=== PATIENT | male | born 1960 | race Caucasian/White ===

== ENCOUNTER 2021-11-02 14:35 | Outpatient (REF) | payer BC, SELFPAY ==
[2021-11-02 14:44] LABS: MANUAL DIFF FLAG NO
[2021-11-02 14:47] LABS: Basophils Percent Auto 0.9 % (0-2); Eosinophils Absolute Auto 0.1 X10*3/uL (0.0-0.4); Hematocrit 47.6 % (42.0-52.0); Hemoglobin 16.4 g/dl (14.0-18.0); Imm Gran Abs Auto 0.02 X10*3/uL (0.00-0.03); Imm Gran Pct Auto 0.4 % (0.0-0.4); Lymphocytes Absolute Auto 1.4 X10*3/uL (1.2-4.9); Lymphocytes Percent Auto 31.3 % (20-40); Mean Corpuscular HGB Conc 34.5 g/dl (31.0-36.0); Mean Corpuscular Hemoglobin 30.9 pg (27.0-33.0); Mean Corpuscular Volume 89.6 fL (80.0-98.0); Mean Platelet Volume 11.7 fL (9.4-12.4); Monocytes Absolute Auto 0.6 X10*3/uL (0.1-1.2); Monocytes Percent Auto 12.6 % (2-11); Neutrophils Absolute Auto 2.4 x10*3/uL (2.0-8.3); Neutrophils Percent Auto 52.8 % (45-73); Platelet Count 190 X10*3/uL (160-400); Red Blood Count 5.31 X10*6/uL (4.60-5.80); Red Cell Distribution Width 12.5 % (11.0-16.0); White Blood Count 4.5 X10*3/uL (4.8-10.8)
[2021-11-02 14:50] LABS: Appearance Urine CLEAR; Color Urine YELLOW; Glucose Urine UA NEG (NEG); Leukocyte Esterase Urine NEG (NEG); Nitrite Urine NEG (NEG); Specific Gravity - Urine >= 1.030 (1.005-1.025); Urine Blood NEG (NEG); Urine Ketones NEG (NEG); Urine Protein NEG (NEG-TRACE)
[2021-11-02 14:59] LABS: Alanine Aminotransferase 21 U/L (0-40); Albumin Level 4.2 g/dL (3.5-5.0); Alkaline Phosphatase 59 U/L (39-117); Anion Gap 11 (12-20); Aspartate Amino Transferase 22 U/L (5-37); Bilirubin Total 0.5 mg/dL (0.0-1.0); Blood Urea Nitrogen 18 mg/dL (9-16); Calcium 9.2 mg/dL (8.4-10.2); Carbon Dioxide 26 mmol/L (22-29); Chloride 105 mmol/L (96-108); Cholesterol 188 mg/dL; Estimated Glomerular Filt Rate 59; Glucose Fasting 125 mg/dL (60-99); HDL Cholesterol 36 mg/dL; LDL Cholesterol Calculated 106 mg/dl; Potassium 4.9 mmol/L (3.3-5.1); Sodium 137 mmol/L (135-145); Total Protein 6.9 g/dL (6.5-8.0); Triglycerides 234 mg/dL; Uric Acid 9.9 mg/dL (3.4-7.0)
[2021-11-02 15:02] LABS: Squamous Epithelial Cell Urine 1+ /LPF
[2021-11-02 15:03] LABS: RBC Urine 0-2 /HPF (0); WBC Urine 0 /HPF (0-4)
[2021-11-02 15:18] LABS: PSA,Total (Free>4and<10) 0.44 ng/mL (0.00-4.00)
== END 2021-11-02 14:36 | disposition home or self-care (01) ==
LOC: HO.LNP 14:35
PROVIDERS: Visit Provider Internal Medicine
DX: Z00.00 Encounter for general adult medical examination without abnormal findings (principal); Z12.5 Encounter for screening for malignant neoplasm of prostate; I10 Essential (primary) hypertension; F41.0 Panic disorder [episodic paroxysmal anxiety]; Z87.39 Personal history of other diseases of the musculoskeletal system and connective tissue
CPT/HCPCS: 80053; 80061; 81001; 84153; 84550; 85025

== ENCOUNTER 2022-02-06 07:23 | Day surgery (SDC) | payer BC, SELFPAY ==
[2022-01-31 14:48] VITALS: BMI 33.6
--- NOTE | 2022-02-05 12:03 | P.CONAN_ITS ---
Documented by User: Tabatha Gunn NP 02/05/22 12:04 HPI - Anesthesia Eval Consult details Narrative: 61yo M for Colonoscopy [facility] Past Medical History Medical History Anxiety Gout HTN (hypertension) Surgical History Surgical History H/O colonoscopy Hx of bilateral inguinal hernia repair Social History Social History Patient Tobacco Use Status: Former Tobacco user Quit Date: 1982 Tobacco use type: Cigarette Cigarettes Per Day: 15 Years Smoked: 8 Smoked in Last 30 Days: No Use of substances other than those prescribed or required for medical reasons: Yes Are you DNR?: No Advance Directives: No Advance Directives Information Provided: Yes Meds Allergies Allergy/AdvReac Type Severity Reaction Status Date / Time No Known Allergies Allergy Verified 02/06/22 07:41 Home Medications Medication Instructions Recorded Confirmed Last Taken Type alprazolam 0.25 mg tablet 1 tab PO DAILY PRN Anxiety 01/31/22 01/31/22 Unknown History carvedilol 25 mg tablet 1 tab PO BID 01/31/22 02/06/22 02/05/22 History colchicine 0.6 mg tablet tab PO 01/31/22 Unknown History indomethacin 50 mg capsule 1 cap PO TID PRN Acid Reflux 01/31/22 01/31/22 Unknown History quinapril 20 mg tablet 1 tab PO DAILY 01/31/22 01/31/22 Unknown History Exam Exam Date and Time: February 05, 2022 1203 Height,Weight and Vital Signs: Height 5 ft 7 in Weight 97.522 kg Pertinent Lab Results Pertinent Lab Results: Laboratory Tests 11/02/21 11/02/21 10:00 10:00 WBC 4.5 L Hgb 16.4 Hct 47.6 Plt Count 190 Sodium 137 Potassium 4.9 Chloride 105 Carbon Dioxide 26 BUN 18 H Creatinine 1.25 Assessment and Plan Assessment Anesthesia Assessment: Chart Reviewed Documented by User: Richa Venegas MD 02/06/22 09:05 PMFSH Past Medical History Medical History Anxiety Gout HTN (hypertension) Surgical History Surgical History H/O colonoscopy Hx of bilateral inguinal hernia repair History of Problems with Anesthesia: No Social History Social History Patient Tobacco Use Status: Former Tobacco user Quit Date: 1982 Tobacco use type: Cigarette Cigarettes Per Day: 15 Years Smoked: 8 Smoked in Last 30 Days: No Use of substances other than those prescribed or required for medical reasons: Yes Are you DNR?: No Advance Directives: No Advance Directives Information Provided: Yes Meds Allergies Allergy/AdvReac Type Severity Reaction Status Date / Time No Known Allergies Allergy Verified 02/06/22 07:41 Home Medications Medication Instructions Recorded Confirmed Last Taken Type alprazolam 0.25 mg tablet 1 tab PO DAILY PRN Anxiety 01/31/22 01/31/22 Unknown History carvedilol 25 mg tablet 1 tab PO BID 01/31/22 02/06/22 02/05/22 History colchicine 0.6 mg tablet tab PO 01/31/22 Unknown History indomethacin 50 mg capsule 1 cap PO TID PRN Acid Reflux 01/31/22 01/31/22 Unknown History quinapril 20 mg tablet 1 tab PO DAILY 01/31/22 01/31/22 Unknown History Exam Airway Mallampati Class: III TM Dist: >3cm Neck ROM: Full Loose/Missing/Broken Teeth: No Heart: RRR Lungs: CTA Assessment and Plan Assessment Anesthesia Assessment: Anesthesia Plan Discussed Final Anesthetic Review History of Problems with Anesthesia: No NPO: Yes ASA Class: II Final Preanesthetic Review: Meds/Allgs Chart Reviewed, Consent Obtained/Reviewed and Anes Risks/Benef Reviewed Patient Risk: Low Procedure Risk: Low Anesthetic Plan Anesthetic Plan: MAC: Disposition: Standard PACU
[2022-02-06 07:42] VITALS: BP 181/98; PULSE 71; RESP 16; TEMP 36.6; O2SAT 93; BMI 29.7
[2022-02-06] MEDS: Lactated Ringers 1,000 ML 100 ML IVCONT (08:14)
[2022-02-06 09:37] VITALS: BP 119/55; PULSE 80; RESP 20; TEMP 36.1; O2SAT 94
--- NOTE | 2022-02-06 09:49 | PM.OP ---
Brief Operative Note Date of Service: 02/06/22 Pre-op diagnosis: Screening Post-op diagnosis: other (Diverticulosis) Procedure: Colonoscopy to the cecum and TI Surgeon: Jordy Turner Anesthesia: MAC Was an Sap Basis Consultant used for this Procedure?: No Estimated blood loss (mL): 0 Pathology: none sent Condition: stable Disposition: PACU
[2022-02-06 09:52] VITALS: BP 144/85; PULSE 74; RESP 18; TEMP 36.3; O2SAT 93
--- NOTE | 2022-02-06 10:08 | OP_ITS ---
SURGEON: Jordy Turner MD INDICATIONS: The patient presents for evaluation of colorectal cancer screening, personal history of colon polyps, and family history of colon cancer. Full consent has been obtained from him for this, including risks of bleeding and perforation. PREOPERATIVE DIAGNOSIS: Colorectal cancer screening, personal history of colon polyps, family history of colon cancer. POSTOPERATIVE DIAGNOSIS: Colorectal cancer screening, personal history of colon polyps, family history of colon cancer, diverticulosis and internal hemorrhoids. PROCEDURE PERFORMED: Colonoscopy to cecum and terminal ileum. ESTIMATED BLOOD LOSS: COMPLICATIONS: ANESTHESIA: Monitored anesthesia care. ASSISTANTS: SPECIMENS: DESCRIPTION OF PROCEDURE: The patient was placed in the left lateral decubitus position. The digital rectal exam revealed no abnormalities. The Olympus video pediatric colonoscope was entered into the rectum and advanced to the cecum with the assistance of abdominal wall pressure. Once in the cecum, I did identify normal-appearing cecal pouch with appendiceal orifice and a normal-appearing ileocecal valve. The terminal ileum was cannulated and appeared normal. The scope was withdrawn back in the colon. The entire cecum and ileocecal valve appeared normal. The scope was then slowly withdrawn assessing all mucosal surfaces carefully. Preparation was excellent. I did not visualize any sign of polyps, colitis, or angiodysplasia. There was a fairly extensive amount of diverticulosis in the sigmoid colon. In the rectum, scope was retroflexed visualizing internal hemorrhoids, but no other pathology. The rectal mucosa appeared normal. Scope was straightened and withdrawn from the patient. He tolerated the procedure well and was returned to the recovery area in stable condition. IMPRESSION: 1. Diverticulosis. 2. Internal hemorrhoids. PLAN: I would recommend a repeat colonoscopy in 5 years for further screening given the family history of colon cancer and his prior history of colon polyps. He will otherwise see me on a p.r.n. basis. MD KAITLIN Gross/MARIZA / [phone]
== END 2022-02-06 10:21 | disposition home or self-care (01) ==
PROVIDERS: PCP Internal Medicine; Visit Provider Internal Medicine
PROC: 0DJD8ZZ Inspection of Lower Intestinal Tract, Via Natural or Artificial Opening Endoscopic (ICD-10-PCS; CPT 45378; principal; 2022-02-06 08:30)
DX: Z12.11 Encounter for screening for malignant neoplasm of colon (principal); Z86.010 Personal history of colon polyps; Z80.0 Family history of malignant neoplasm of digestive organs; K57.30 Diverticulosis of large intestine without perforation or abscess without bleeding; K64.8 Other hemorrhoids; I10 Essential (primary) hypertension; M10.9 Gout, unspecified; F41.1 Generalized anxiety disorder; Z79.899 Other long term (current) drug therapy; Z87.891 Personal history of nicotine dependence
CPT/HCPCS: 45378

== ENCOUNTER → 2022-06-18 14:03 | Outpatient (REF) | payer BC, SELFPAY ==
--- NOTE | 2022-06-18 14:09 | HM_ITS ---
Cardiac event monitor Indication: Palpitations Technique: Patient was hooked up for cardiac event monitor on 06/18/2022 for total period of 30 days. I was requested to read this study today Findings: Patient's compliance rate was extremely poor with where time of only 2.67% and with no data during that time as well. Conclusion: Poor compliance with cardiac event monitor with no identifiable data MTDD
== END ==
LOC: HO.CARD 14:03
PROVIDERS: PCP Internal Medicine; Visit Provider Internal Medicine
DX: R00.2 Palpitations (principal)
CPT/HCPCS: 93270

== ENCOUNTER → 2022-06-18 14:09 | Outpatient (BNV) | payer BC, SELFPAY | PROVIDERS: PCP Internal Medicine; Visit Provider Internal Medicine Cardiovascular Disease | DX: R00.2 Palpitations (principal) | CPT/HCPCS: 93272 ==

== ENCOUNTER 2022-08-08 10:56 | Outpatient (REF) | payer BC, SELFPAY ==
[2022-08-08 11:04] LABS: MANUAL DIFF FLAG NO
[2022-08-08 13:14] LABS: Basophils Percent Auto 0.6 % (0-2); Eosinophils Absolute Auto 0.1 X10*3/uL (0.0-0.4); Eosinophils Percent Auto 1.8 % (0-4); Hematocrit 50.5 % (42.0-52.0); Hemoglobin 17.2 g/dl (14.0-18.0); Imm Gran Abs Auto 0.04 X10*3/uL (0.00-0.03); Imm Gran Pct Auto 0.6 % (0.0-0.4); Lymphocytes Absolute Auto 2.7 X10*3/uL (1.2-4.9); Lymphocytes Percent Auto 41.3 % (20-40); Mean Corpuscular HGB Conc 34.1 g/dl (31.0-36.0); Mean Corpuscular Hemoglobin 31.3 pg (27.0-33.0); Mean Corpuscular Volume 91.8 fL (80.0-98.0); Mean Platelet Volume 11.3 fL (9.4-12.4); Monocytes Absolute Auto 0.7 X10*3/uL (0.1-1.2); Monocytes Percent Auto 10.6 % (2-11); Neutrophils Percent Auto 45.1 % (45-73); Platelet Count 253 X10*3/uL (160-400); Red Cell Distribution Width 12.9 % (11.0-16.0); White Blood Count 6.6 X10*3/uL (4.8-10.8)
[2022-08-08 13:17] LABS: Appearance Urine Clear; Color Urine Yellow; Glucose Urine UA Negative (Negative); Leukocyte Esterase Urine Negative (Negative); Nitrite Urine Negative (Negative); PH 5.5 (5.0-9.0); Specific Gravity - Urine 1.015 (1.005-1.025); Urine Blood Negative (Negative); Urine Ketones Negative (Negative); Urine Protein Negative (Neg-Trace)
[2022-08-08 13:27] LABS: Bacteria Urine None Seen (None Seen); Hyaline Casts Urine 0-2 /LPF (0-2); RBC Urine 0-2 /HPF (0-2); Squamous Epithelial Cell Urine 0-2 /HPF (0-2); WBC Urine 0-5 /HPF (0-5)
[2022-08-08 13:48] LABS: Alanine Aminotransferase 29 U/L (0-40); Albumin Level 4.3 g/dL (3.5-5.0); Alkaline Phosphatase 61 U/L (39-117); Anion Gap 15 (12-20); Aspartate Amino Transferase 25 U/L (5-37); Blood Urea Nitrogen 24 mg/dL (9-16); Calcium 9.3 mg/dL (8.4-10.2); Carbon Dioxide 24 mmol/L (22-29); Chloride 105 mmol/L (96-108); Cholesterol 197 mg/dL; Estimated Glomerular Filt Rate > 60; Glucose Fasting 98 mg/dL (60-99); HDL Cholesterol 33 mg/dL; LDL Cholesterol Calculated 114 mg/dl; Potassium 4.9 mmol/L (3.3-5.1); Sodium 139 mmol/L (135-145); Triglycerides 253 mg/dL
[2022-08-08 14:04] LABS: PSA,Total (Free>4and<10) 0.47 ng/mL (0.00-4.00)
== END 2022-08-08 10:57 | disposition home or self-care (01) ==
LOC: HO.LNP 10:56
PROVIDERS: Visit Provider Internal Medicine
DX: Z00.00 Encounter for general adult medical examination without abnormal findings (principal); I10 Essential (primary) hypertension; Z12.5 Encounter for screening for malignant neoplasm of prostate
CPT/HCPCS: 80053; 80061; 81001; 84153; 85025

== ENCOUNTER 2022-11-18 10:43 | Outpatient (REF) | payer BC, SELFPAY ==
--- NOTE | ~2022-11-18 | XR_ITS ---
EXAMINATION: XR ANKLE, LEFT CLINICAL INFORMATION: Acute left ankle pain COMPARISON: None available. TECHNIQUE: AP, lateral, and mortise views of the left ankle. FINDINGS: Radiopaque marker placed by the technologist to indicate the area of concern as indicated by the patient adjacent to the lateral malleolus There is diffuse soft tissue swelling, more notable medially, with an ankle joint effusion. No displaced fracture identified. Alignment preserved. Oval 8 mm ossicle projects over the anterior lateral aspect of the calcaneus There is an area of demineralization with possible corticated margins measuring 1.3 x 1.2 cm along the medial aspect of the talus on the AP view which appears less well-defined on the oblique view. XR/XR ankle LT 2V IMPRESSION: Possible 1.3 cm cystic lucency/area of demineralization detailed above. CT scan or MRI recommended for further evaluation. This study was presented today 11/25/2022 at 9:30 AM for interpretation. PSA staff will provide results to referring provider at this time.
== END 2022-11-18 10:44 | disposition home or self-care (01) ==
LOC: HO.XRAY 10:43
PROVIDERS: PCP Internal Medicine; Visit Provider Internal Medicine
DX: M25.572 Pain in left ankle and joints of left foot (principal)
CPT/HCPCS: 73600

== ENCOUNTER 2023-08-12 11:18 | Outpatient (REF) | payer BC, SELFPAY ==
[2023-08-12 11:21] LABS: MANUAL DIFF FLAG NO
[2023-08-12 12:00] LABS: Appearance Urine Clear; Color Urine Yellow; Glucose Urine UA Negative (Negative); Leukocyte Esterase Urine Trace (Negative); Nitrite Urine Negative (Negative); PH 5.5 (5.0-9.0); Specific Gravity - Urine 1.025 (1.005-1.025); UMIC TRIGGER UACC YES; Urine Blood Negative (Negative); Urine Ketones Negative (Negative); Urine Protein Negative (Neg-Trace)
[2023-08-12 12:11] LABS: Basophils Percent Auto 0.4 % (0-2); Eosinophils Absolute Auto 0.1 X10*3/uL (0.0-0.4); Eosinophils Percent Auto 1.3 % (0-4); Hemoglobin 16.3 g/dl (14.0-18.0); Imm Gran Abs Auto 0.04 X10*3/uL (0.00-0.03); Imm Gran Pct Auto 0.5 % (0.0-0.4); Lymphocytes Absolute Auto 2.3 X10*3/uL (1.2-4.9); Lymphocytes Percent Auto 30.2 % (20-40); Mean Corpuscular HGB Conc 33.3 g/dl (31.0-36.0); Mean Corpuscular Hemoglobin 30.4 pg (27.0-33.0); Mean Corpuscular Volume 91.4 fL (80.0-98.0); Mean Platelet Volume 11.3 fL (9.4-12.4); Monocytes Absolute Auto 0.7 X10*3/uL (0.1-1.2); Monocytes Percent Auto 9.7 % (2-11); Neutrophils Absolute Auto 4.3 x10*3/uL (2.0-8.3); Neutrophils Percent Auto 57.9 % (45-73); Platelet Count 223 X10*3/uL (160-400); Red Blood Count 5.36 X10*6/uL (4.60-5.80); Red Cell Distribution Width 13.8 % (11.0-16.0); White Blood Count 7.4 X10*3/uL (4.8-10.8)
[2023-08-12 12:15] LABS: Bacteria Urine None Seen (None Seen); Hyaline Casts Urine 0-2 /LPF (0-2); RBC Urine 0-2 /HPF (0-2); Squamous Epithelial Cell Urine 0-2 /HPF (0-2); UACC Culture Trigger YES
[2023-08-12 13:07] LABS: PSA,Total (Free>4and<10) 0.45 ng/mL (0.00-4.00)
[2023-08-12 14:08] LABS: Alanine Aminotransferase 20 U/L (0-40); Alkaline Phosphatase 57 U/L (39-117); Anion Gap 15 (12-20); Aspartate Amino Transferase 18 U/L (5-37); Bilirubin Total 0.6 mg/dL (0.0-1.0); Blood Urea Nitrogen 19 mg/dL (9-16); Calcium 9.3 mg/dL (8.4-10.2); Carbon Dioxide 25 mmol/L (22-29); Chloride 105 mmol/L (96-108); Cholesterol 201 mg/dL (<200); Estimated Glomerular Filt Rate 56; Glucose Fasting 101 mg/dL (60-99); HDL Cholesterol 45 mg/dL (>40); LDL Cholesterol Calculated 117 mg/dL (<100); Potassium 4.6 mmol/L (3.3-5.1); Sodium 140 mmol/L (135-145); Triglycerides 195 mg/dL (<150); Uric Acid 9.8 mg/dL (3.4-7.0)
== END 2023-08-12 11:19 | disposition home or self-care (01) ==
LOC: HO.LNP 11:18
PROVIDERS: Visit Provider Internal Medicine
DX: Z00.00 Encounter for general adult medical examination without abnormal findings (principal); Z12.5 Encounter for screening for malignant neoplasm of prostate; M10.9 Gout, unspecified; I10 Essential (primary) hypertension; R82.90 Unspecified abnormal findings in urine
CPT/HCPCS: 80053; 80061; 81001; 84153; 84550; 85025; 87086

== ENCOUNTER 2024-08-19 10:36 | Outpatient (REF) | payer BC, SELFPAY ==
[2024-08-19 10:39] LABS: MANUAL DIFF FLAG NO
[2024-08-19 11:09] LABS: Basophils Percent Auto 0.6 % (0-2); Eosinophils Absolute Auto 0.1 X10*3/uL (0.0-0.4); Eosinophils Percent Auto 1.9 % (0-4); Hematocrit 49.1 % (42.0-52.0); Hemoglobin 16.5 g/dl (14.0-18.0); Imm Gran Abs Auto 0.02 X10*3/uL (0.00-0.03); Imm Gran Pct Auto 0.3 % (0.0-0.4); Lymphocytes Absolute Auto 2.3 X10*3/uL (1.2-4.9); Lymphocytes Percent Auto 32.1 % (20-40); Mean Corpuscular HGB Conc 33.6 g/dl (31.0-36.0); Mean Corpuscular Hemoglobin 30.8 pg (27.0-33.0); Mean Corpuscular Volume 91.6 fL (80.0-98.0); Mean Platelet Volume 11.3 fL (9.4-12.4); Monocytes Absolute Auto 0.7 X10*3/uL (0.1-1.2); Monocytes Percent Auto 9.7 % (2-11); Neutrophils Absolute Auto 3.9 x10*3/uL (2.0-8.3); Neutrophils Percent Auto 55.4 % (45-73); Platelet Count 242 X10*3/uL (160-400); Red Blood Count 5.36 X10*6/uL (4.60-5.80); Red Cell Distribution Width 13.2 % (11.0-16.0)
[2024-08-19 11:17] LABS: Appearance Urine Clear; Color Urine Yellow; Glucose Urine UA Negative (Negative); Leukocyte Esterase Urine Negative (Negative); Nitrite Urine Negative (Negative); PH 5.5 (5.0-9.0); Urine Blood Negative (Negative); Urine Ketones Negative (Negative); Urine Protein Negative (Neg-Trace)
[2024-08-19 11:22] LABS: Bacteria Urine None Seen (None Seen); Hyaline Casts Urine 0-2 /LPF (0-2); RBC Urine 0-2 /HPF (0-2); Squamous Epithelial Cell Urine 0-2 /HPF (0-2); WBC Urine 0-5 /HPF (0-5)
[2024-08-19 11:29] LABS: Alanine Aminotransferase 22 U/L (0-40); Albumin Level 4.1 g/dL (3.5-5.0); Alkaline Phosphatase 53 U/L (39-117); Anion Gap 12 (12-20); Aspartate Amino Transferase 30 U/L (5-37); Bilirubin Total 1.1 mg/dL (0.0-1.0); Blood Urea Nitrogen 20 mg/dL (9-16); Calcium 9.5 mg/dL (8.4-10.2); Carbon Dioxide 26 mmol/L (22-29); Chloride 105 mmol/L (96-108); Cholesterol 177 mg/dL (<200); Estimated Glomerular Filt Rate > 60; Glucose Fasting 91 mg/dL (60-99); HDL Cholesterol 44 mg/dL (>40); LDL Cholesterol Calculated 94 mg/dL (<100); Potassium 4.8 mmol/L (3.3-5.1); Sodium 138 mmol/L (135-145); Triglycerides 198 mg/dL (<150)
== END 2024-08-19 10:37 | disposition home or self-care (01) ==
LOC: HO.LNP 10:36
PROVIDERS: Visit Provider Internal Medicine
DX: Z00.00 Encounter for general adult medical examination without abnormal findings (principal); Z12.5 Encounter for screening for malignant neoplasm of prostate; I10 Essential (primary) hypertension
CPT/HCPCS: 80053; 80061; 81001; 84153; 85025

== ENCOUNTER 2024-08-23 13:12 | Outpatient (REF) | payer BC, SELFPAY | END 2024-08-23 13:13 | disposition home or self-care (01) | LOC: HO.LNP 13:12 | PROVIDERS: Visit Provider Internal Medicine | DX: M10.9 Gout, unspecified (principal) | CPT/HCPCS: 84550 ==